=== PATIENT | female | born 1985 | race Caucasian/White ===

== ENCOUNTER 2024-01-17 08:55 | Outpatient (CLI) | payer OTHER ==
[2024-01-17] MEDS ORDERED: DIATR MEGLU/DIATRIZ SOD 30 ML SOLUTION PO ONE (09:03)
== END 2024-01-17 18:58 | disposition home or self-care (01) ==
LOC: SCT 08:55
PROVIDERS: ATTEND Family Medicine
DX: K59.04 Chronic idiopathic constipation (principal); R10.31 Right lower quadrant pain; R10.11 Right upper quadrant pain; N94.89 Other specified conditions associated with female genital organs and menstrual cycle; D25.9 Leiomyoma of uterus, unspecified; N85.2 Hypertrophy of uterus; K63.89 Other specified diseases of intestine
CPT/HCPCS: 74177; Q9967; Q9964